=== PATIENT | female | born 1950 | race Caucasian/White ===

== ENCOUNTER 2018-03-12 10:14 | Emergency (ER) | payer MEDICARE, OTHER ==
[~2018-03-12] VITALS: Ht 170.2 cm; Wt 76.2 kg
[2018-03-12] MEDS ORDERED: DIPHTH/TETANUS/ACEL. PERTUSSIS 0.5 ML SYR IM ONE (10:45)
[2018-03-12] MEDS ORDERED: DIPHENHYDRAMINE HCL 25 MG CAP PO ONE (10:45)
[2018-03-12] MEDS ORDERED: SYNTHROID112 MCG PO (11:02)
[2018-03-12] MEDS ORDERED: METHYLPREDNISOLONE SOD SUCC 125 MG/2ML VIAL IM ONE (12:45)
[2018-03-12] MEDS ORDERED: DIPHENHYDRAMINE HCL 25 MG CAP PO NR (12:45)
== END 2018-03-12 14:15 | disposition home or self-care (01) ==
LOC: FSED 10:14
DX: T63.461A Toxic effect of venom of wasps, accidental (unintentional), initial encounter (principal); L50.9 Urticaria, unspecified
CPT/HCPCS: 94760; 99283; J2930